=== PATIENT | male | born 1960 | race Caucasian/White ===

== ENCOUNTER 2016-10-12 19:15 | Emergency (ER) | payer MEDICAID ==
[~2016-10-12] VITALS: Ht 167.6 cm; Wt 69.5 kg
[2016-10-12 20:18] LABS: BASO # 0.1 K/mm3 (0.0-0.2); BASO % 0.8 % (0.0-1.0); EOS # 0.4 K/mm3 (0.0-0.50); LARGE UNSTAINED CELL # 0.2 K/mm3 (0.0-0.4); LARGE UNSTAINED CELL % 1.6 % (0.0-4.0); LYMPH # 2.6 K/mm3 (1.5-4.5); LYMPH % 25.3 % (24.0-44.0); MEAN CORPUSCULAR HEMOGLOBIN 34.7 pg (27.0-33.0); MEAN CORPUSCULAR HGB CONC 35.9 g/dl (32.0-36.5); MEAN CORPUSCULAR VOLUME 96.7 fl (80.0-96.0); MONO # 0.4 K/mm3 (0.0-0.8); MONO % 4.3 % (0.0-5.0); NEUTROPHILS # 6.3 K/mm3 (1.8-7.7); NEUTROPHILS % 63.9 % (36.0-66.0); PLATELET COUNT, AUTOMATED 290 k/mm3 (150-450); RED CELL DISTRIBUTION WIDTH 14.3 % (11.5-14.5); WHITE BLOOD COUNT 9.8 K/mm3 (4.0-10.0)
[2016-10-12 20:37] LABS: ANION GAP 6 MEQ/L (8-16); BLOOD UREA NITROGEN 15 MG/DL (7-18); CALCIUM LEVEL 9.1 MG/DL (8.5-10.1); CARBON DIOXIDE LEVEL 27 MEQ/L (21-32); CHLORIDE LEVEL 105 MEQ/L (98-107); CREATININE FOR GFR 0.82 MG/DL (0.70-1.30); GLOMERULAR FILTRATION RATE > 60.0 (>56); GLUCOSE, FASTING 98 MG/DL (70-105); POTASSIUM SERUM 4.4 MEQ/L (3.5-5.1); SODIUM LEVEL 138 MEQ/L (136-145)
--- NOTE | 2016-10-12 22:00 | REPUSA ---
Clinical statement: Pain. Findings: There is a right inguinal hernia demonstrated. The defect measures 4.6 x 5.3 cm in dimensio n. Omental fat is seen herniating through this site. No bowel is involved. There is no evidence of a scites. The hernia is not resolvable. Impression: Right inguinal hernia containing omental fat as described.
[2016-10-12] MEDS ORDERED: IBUP-1022 PO (22:24)
[2016-10-12 22:29] VITALS: BP 132/81
== END 2016-10-12 22:40 | disposition home or self-care (01) ==
LOC: M ED 19:15
DX: K40.90 Unilateral inguinal hernia, without obstruction or gangrene, not specified as recurrent (principal); F17.210 Nicotine dependence, cigarettes, uncomplicated

== ENCOUNTER 2017-01-10 05:50 | Day surgery (SDC) | payer MEDICAID, OTHER ==
[~2017-01-10] VITALS: Ht 167.6 cm; Wt 72.6 kg
[~2017-01-10 05:50] MED LIST: IBUP-1022 PO
[2017-01-10] MEDS ORDERED: LR 1,000 ML IV ONE (06:00)
[2017-01-10] MEDS ORDERED: LIDOCAINE 1% MDV 20ML VIAL As Ordered ONE (06:53)
[2017-01-10] MEDS ORDERED: LIDOCAINE 1% SDV INJ 30 ML VIAL As Ordered ONE (07:19)
[2017-01-10] MEDS ORDERED: BUPIVACAINE HCL 0.25% 30 ML VIAL As Ordered ONE (07:19)
[2017-01-10] MEDS ORDERED: ROCURONIUM BROMIDE 50 MG/5 ML VIAL/SYRINGE As Ordered ONE (07:21)
[2017-01-10] MEDS ORDERED: MIDAZOLAM INJ 2 MG/2 ML VIAL (J2250) As Ordered ONE (07:21)
[2017-01-10] MEDS ORDERED: LIDOCAINE 2% INJ 100 MG/5 ML SDV (FOR ANES.) As Ordered ONE (07:21)
[2017-01-10] MEDS ORDERED: fentaNYL 100 MCG/2 ML INJECTION (J3010) As Ordered ONE (07:21)
[2017-01-10] MEDS ORDERED: PROPOFOL 200 MG/20 ML VIAL As Ordered ONE (07:21)
[2017-01-10] MEDS ORDERED: ePHEDrine SULFATE 25 MG/5 ML(5MG/ML) SYRINGE As Ordered ONE (07:55)
[2017-01-10] MEDS ORDERED: ONDANSETRON 4MG/2ML VIAL (J2405) As Ordered ONE (07:55)
[2017-01-10] MEDS ORDERED: KETOROLAC 60 MG/2 ML VIAL (J1885) As Ordered ONE (07:55)
[2017-01-10] MEDS ORDERED: dexameTHASONE 4 MG/ML 1ML VIAL (J1100) As Ordered ONE (07:55)
[2017-01-10] MEDS ORDERED: NEOSTIGMINE 10 MG/10 ML VIAL (J2710) As Ordered ONE (07:55)
[2017-01-10] MEDS ORDERED: GLYCOPYRROLATE INJ 0.2 MG/ML 2 ML VIAL As Ordered ONE (07:55)
[2017-01-10] MEDS ORDERED: HYDROmorphone HCL 2 MG/ML 1ML VIAL (J1170) As Ordered ONE (08:12)
[2017-01-10] MEDS ORDERED: PHENYLephrine HCL 500 MCG/5 ML (100MCG/ML) SYRINGE (J2370) As Ordered ONE (09:18)
[2017-01-10] MEDS ORDERED: ONDANSETRON 4MG/2ML VIAL (J2405) IV PRN (10:00)
[2017-01-10] MEDS ORDERED: LR 1,000 ML IV SCH (10:00)
[2017-01-10] MEDS ORDERED: fentaNYL 100 MCG/2 ML INJECTION (J3010) IV PRN (10:00)
[2017-01-10] MEDS ORDERED: PERCOCET 5MG/325MG TAB PO PRN (10:00)
[2017-01-10] MEDS ORDERED: METOCLOPRAMIDE INJ 10MG/2ML VIAL (J2765) IV PRN (10:00)
[2017-01-10] MEDS ORDERED: MEPERIDINE INJ 25 MG/ML VIAL (J2175) IV PRN (10:00)
--- NOTE | 2017-01-10 10:29 | RO ---
DATE OF PROCEDURE: 01/10/2017 PREOPERATIVE DIAGNOSIS: Right inguinal hernia. POSTOPERATIVE DIAGNOSIS: Right inguinal hernia. PROCEDURE PERFORMED: Right inguinal herniorrhaphy with ultra Pro mesh. SURGEON: Dr. Stefan Del Angel APPEALS EXAMINER: Dr. Cassidy ANESTHESIA: General. INDICATIONS FOR PROCEDURE: The patient is a 56-year-old man with a right inguinal hernia for repair. The patient was placed under general endotracheal anesthesia. The patient's lower abdomen, groins and genitalia were prepped and draped in a sterile fashion. An approximately 8-10 cm oblique right lower quadrant skin incision was made over the course of the inguinal canal. The incision was deepened through the subcutaneous tissues using cautery. The external oblique aponeurosis was exposed. This was opened in the direction of its fibers into the external ring. There was some significant scarring at the external ring where it met the spermatic cord requiring some additional dissection. The spermatic cord was isolated at the pubic tubercle and elevated with a drain. The cord was opened and a distinct fairly thick walled indirect inguinal hernia sac was identified. This was dissected free from surrounding structures preserving the testicular vessels on the vas deferens. The sac was opened. There were a few adhesions of some omentum near the neck of the sac and these were lysed and the omentum was reduced into the abdomen. The hernia sac was twisted and suture ligated at its neck with a #0 Vicryl and excised. The inguinal floor was somewhat weakened and several sutures were used to approximate the conjoined tendon to the area of the shelving edge of the inguinal ligament to take a tuck in the inguinal floor. A 6 x 11 cm piece of ultra Pro mesh was then selected. This was lot number [id number]. This was trimmed to fit the inguinal floor and split laterally to fit about the spermatic cord. This was sutured at the pubic tubercle with a #3-0 Prolene which was carried along the lateral aspect of the mesh suturing this to the edge of the inguinal ligament. The medial portion of the mesh was tacked down to the underlying muscle and fascia with simple sutures of #3-0 Vicryl. The tails of the mesh were overlapped lateral to the spermatic cord and sutured together with #3-0 Vicryl. This appeared to give a nice reinforcement of the inguinal floor with narrowing of the internal ring. Approximately 20 mL of 0.25% Marcaine were infiltrated into the fascia and around the subcutaneous tissues of the wound. The external oblique was closed with a running suture of #0 Vicryl. The subcutaneous tissues were closed with chromic and the skin edges were brought into apposition with several buried #3-0 chromic sutures. The skin edges were approximated with a running subcuticular #4-0 Vicryl and Steri-Strips. A light dressing was applied. The patient tolerated the procedure well without apparent complication. He was awakened in the operating room, extubated and moved to the recovery room in stable condition. JOSE
[2017-01-10 11:25] VITALS: BP 124/74
== END 2017-01-10 11:34 | disposition home or self-care (01) ==
LOC: M SDC 05:50
PROVIDERS: ATTEND Surgery
DX: K40.90 Unilateral inguinal hernia, without obstruction or gangrene, not specified as recurrent (principal); F12.90 Cannabis use, unspecified, uncomplicated; Z72.0 Tobacco use
CPT/HCPCS: 49505; 88302; C1781; J1100; J1170; J1885; J2250; J2370; J2405; J2710; J3010

== ENCOUNTER → 2017-03-28 | Outpatient (CLI) | payer OTHER ==
[2017-03-28 11:02] LABS: ALBUMIN 4.2 GM/DL (3.2-5.2); ALBUMIN/GLOBULIN RATIO 1.14 (1.00-1.93); ALKALINE PHOSPHATASE 97 U/L (45-117); ALT/SGPT 28 U/L (12-78); ANION GAP 7 MEQ/L (8-16); AST/SGOT 13 U/L (7-37); BILIRUBIN,TOTAL 1.2 MG/DL (0.2-1.0); BLOOD UREA NITROGEN 19 MG/DL (7-18); CALCIUM LEVEL 8.9 MG/DL (8.5-10.1); CARBON DIOXIDE LEVEL 31 MEQ/L (21-32); CHLORIDE LEVEL 103 MEQ/L (98-107); CHOLESTEROL LEVEL 207 MG/DL (<200); CREATININE FOR GFR 0.92 MG/DL (0.70-1.30); FREE T4 1.04 NG/DL (0.76-1.46); GLOMERULAR FILTRATION RATE > 60.0 (>56); GLUCOSE, FASTING 95 MG/DL (70-105); POTASSIUM SERUM 4.6 MEQ/L (3.5-5.1); SODIUM LEVEL 141 MEQ/L (136-145); TOTAL PROTEIN 7.9 GM/DL (6.4-8.2); TRIGLYCERIDES LEVEL 273 MG/DL (<150)
--- NOTE | 2017-03-29 02:08 | REP ---
Clinical: Pain. Technique: AP, lateral, flexion/extension, bilateral oblique, and open-mouth views. Findings: Alignment and lordosis is maintained. There is no evidence for acute fracture / compression injury or subluxation. No significant degenerative changes are appreciated. Oblique views demonstrate patent neural foramen. Open mouth view demonstrates normal C1-C2 articulation and odontoid process. Impression: Age appropriate examination. If the patient remains symptomatic, consider MRI for further evaluation. Signed by David Denise MD 03/29/2017 01:59 A
== END ==
LOC: M LAB 09:17
PROVIDERS: ATTEND Nurse Practitioner Family
DX: Z00.00 Encounter for general adult medical examination without abnormal findings (principal); Z12.5 Encounter for screening for malignant neoplasm of prostate; R03.0 Elevated blood-pressure reading, without diagnosis of hypertension; F10.99 Alcohol use, unspecified with unspecified alcohol-induced disorder; M54.2 Cervicalgia

== ENCOUNTER → 2017-04-10 | Outpatient (CLI) | payer OTHER | LOC: M RAD 08:52 | DX: Z12.2 Encounter for screening for malignant neoplasm of respiratory organs (principal); Z87.891 Personal history of nicotine dependence | CPT/HCPCS: G0297 ==

== ENCOUNTER 2017-04-23 10:39 | Day surgery (SDC) | payer OTHER ==
[2017-04-23] MEDS: LR 1,000 ML IV (11:00)
[2017-04-23] MEDS ORDERED: PROPOFOL 200 MG/20 ML VIAL As Ordered ×3 (11:56→12:13)
[2017-04-23] MEDS ORDERED: LIDOCAINE 2% INJ 100 MG/5 ML SDV (FOR ANES.) As Ordered (11:56)
== END 2017-04-23 13:15 | disposition home or self-care (01) ==
LOC: M OPP 10:39
DX: Z12.11 Encounter for screening for malignant neoplasm of colon (principal); Z86.010 Personal history of colon polyps; Z80.0 Family history of malignant neoplasm of digestive organs; K57.30 Diverticulosis of large intestine without perforation or abscess without bleeding; K21.9 Gastro-esophageal reflux disease without esophagitis; K22.2 Esophageal obstruction; E78.5 Hyperlipidemia, unspecified; Z87.891 Personal history of nicotine dependence; Z79.899 Other long term (current) drug therapy
CPT/HCPCS: G0105

== ENCOUNTER → 2017-05-14 | Outpatient (CLI) | payer OTHER, MEDICAID | LOC: M RAD 09:18 | DX: M25.552 Pain in left hip (principal) | CPT/HCPCS: 73502 ==

== ENCOUNTER → 2017-06-11 | Outpatient (CLI) | payer OTHER ==
[2017-06-11 10:02] LABS: ALBUMIN 4.1 GM/DL (3.2-5.2); ALBUMIN/GLOBULIN RATIO 1.21 (1.00-1.93); ALKALINE PHOSPHATASE 104 U/L (45-117); ALT/SGPT 31 U/L (12-78); ANION GAP 4 MEQ/L (8-16); AST/SGOT 12 U/L (7-37); BILIRUBIN,TOTAL 1.5 MG/DL (0.2-1.0); BLOOD UREA NITROGEN 13 MG/DL (7-18); CALCIUM LEVEL 8.8 MG/DL (8.5-10.1); CARBON DIOXIDE LEVEL 29 MEQ/L (21-32); CHLORIDE LEVEL 107 MEQ/L (98-107); CREATININE FOR GFR 0.92 MG/DL (0.70-1.30); FREE T4 1.11 NG/DL (0.76-1.46); GLOMERULAR FILTRATION RATE > 60.0 (>56); GLUCOSE, FASTING 102 MG/DL (70-100); POTASSIUM SERUM 4.9 MEQ/L (3.5-5.1); SODIUM LEVEL 140 MEQ/L (136-145); TOTAL PROTEIN 7.5 GM/DL (6.4-8.2)
== END ==
LOC: M LAB 09:03
DX: E78.5 Hyperlipidemia, unspecified (principal)
CPT/HCPCS: 84443

== ENCOUNTER → 2017-09-18 | Outpatient (CLI) | payer OTHER ==
[2017-09-18 09:09] LABS: ALBUMIN/GLOBULIN RATIO 1.11 (1.00-1.93); ALKALINE PHOSPHATASE 104 U/L (45-117); ALT/SGPT 31 U/L (12-78); ANION GAP 9 MEQ/L (8-16); AST/SGOT 14 U/L (7-37); BILIRUBIN,TOTAL 1.4 MG/DL (0.2-1.0); BLOOD UREA NITROGEN 16 MG/DL (7-18); CALCIUM LEVEL 8.9 MG/DL (8.5-10.1); CARBON DIOXIDE LEVEL 28 MEQ/L (21-32); CHLORIDE LEVEL 103 MEQ/L (98-107); CREATININE FOR GFR 0.91 MG/DL (0.70-1.30); FREE T4 1.11 NG/DL (0.76-1.46); GLOMERULAR FILTRATION RATE > 60.0 (>56); GLUCOSE, FASTING 93 MG/DL (70-100); POTASSIUM SERUM 4.5 MEQ/L (3.5-5.1); SODIUM LEVEL 140 MEQ/L (136-145); TOTAL PROTEIN 7.6 GM/DL (6.4-8.2)
== END ==
LOC: M LAB 07:55
DX: E78.5 Hyperlipidemia, unspecified (principal); E03.9 Hypothyroidism, unspecified
CPT/HCPCS: 84443

== ENCOUNTER 2017-10-25 09:17 | Outpatient (RCR) | payer OTHER | END 2017-11-05 | LOC: M PT 09:17 | DX: Z51.89 Encounter for other specified aftercare (principal); M54.42 Lumbago with sciatica, left side | CPT/HCPCS: 97010 ==

== ENCOUNTER 2017-11-06 09:03 | Outpatient (RCR) | payer OTHER | END 2017-12-06 | LOC: M PT 11-11 09:15 | DX: Z51.89 Encounter for other specified aftercare (principal); M54.42 Lumbago with sciatica, left side | CPT/HCPCS: 97010 ==

== ENCOUNTER → 2019-02-02 | Outpatient (CLI) | payer OTHER ==
[~2019-02-02] MED LIST changes: +ATOR40TA75; +HYDR-3713; +IBUP-1022
[2019-02-02 12:09] LABS: ALT/SGPT 23 U/L (12-78); BLOOD UREA NITROGEN 18 MG/DL (7-18); CALCIUM LEVEL 8.8 MG/DL (8.5-10.1); CARBON DIOXIDE LEVEL 29 MEQ/L (21-32); CHLORIDE LEVEL 105 MEQ/L (98-107); CHOLESTEROL LEVEL 164 MG/DL (<200); CHOLESTEROL RISK RATIO 3.489 (<5); CREATININE FOR GFR 0.94 MG/DL (0.70-1.30); GLOMERULAR FILTRATION RATE > 60.0 (>56); GLUCOSE, FASTING 94 MG/DL (70-100); HDL CHOLESTEROL 47 MG/DL (>40); LDL CHOLESTEROL 92 MG/DL (<100); NON-HDL-C 117 MG/DL; POTASSIUM SERUM 4.7 MEQ/L (3.5-5.1); SODIUM LEVEL 140 MEQ/L (136-145); TOTAL PROTEIN 7.1 GM/DL (6.4-8.2); TRIGLYCERIDES LEVEL 124 MG/DL (<150)
[2019-02-02 12:10] LABS: ALBUMIN 3.9 GM/DL (3.2-5.2); FREE T4 0.91 NG/DL (0.76-1.46)
== END ==
LOC: M LAB 10:52
PROVIDERS: ATTEND Nurse Practitioner Family
DX: E78.5 Hyperlipidemia, unspecified (principal); Z12.5 Encounter for screening for malignant neoplasm of prostate

== ENCOUNTER → 2019-02-03 | Outpatient (CLI) | payer OTHER ==
--- NOTE | 2019-02-03 12:53 | REP ---
Clinical: Lung screening. History smoking. Comparison: 04/10/2017 Technique: Axial low-dose noncontrast images from the thoracic inlet to the upper abdomen using lung screening technique. Findings: The lung david are well-aerated. No consolidation, significant nodule or mass lesion is appreciated. No pleural effusion/reaction or pneumothorax. Tracheobronchial tree is patent. Mediastinum demonstrates mild atherosclerotic changes of the coronary arteries without cardiomegaly. Impression: Lung-RADS category I. No nodule or suspicious abnormality. Electronically Signed by David Denise MD 02/03/2019 10:08 A
== END ==
LOC: M RAD 09:49
PROVIDERS: ATTEND Nurse Practitioner Family
DX: Z12.2 Encounter for screening for malignant neoplasm of respiratory organs (principal); F17.210 Nicotine dependence, cigarettes, uncomplicated

== ENCOUNTER 2019-03-03 09:28 | Outpatient (RCR) | payer OTHER | END 2019-03-07 | LOC: M PT 09:28 | PROVIDERS: ATTEND Nurse Practitioner Family | DX: M54.2 Cervicalgia (principal); G56.01 Carpal tunnel syndrome, right upper limb ==

== ENCOUNTER 2019-04-02 12:00 | Outpatient (RCR) | payer OTHER | END 2019-04-07 | LOC: M PT 12:00 | PROVIDERS: ATTEND Nurse Practitioner Family | DX: M54.2 Cervicalgia (principal); G56.01 Carpal tunnel syndrome, right upper limb ==

== ENCOUNTER → 2020-06-15 | Outpatient (CLI) | payer OTHER ==
--- NOTE | 2020-06-15 12:56 | REP ---
INDICATION: SMOKER COMPARISON: None. TECHNIQUE: Axial noncontrast images from the thoracic inlet to the upper abdomen using low-dose lung screening technique (LDCT). FINDINGS: Lung david are well aerated and relatively symmetric. No consolidation, significant nodule or mass lesion is appreciated. No pleural effusion. No pneumothorax. Tracheobronchial tree is patent. Mediastinum demonstrates stable mild atherosclerotic changes to the thoracic aorta and coronary arteries without cardiomegaly or aortic aneurysm. IMPRESSION: Lung-RADS category 1. Management recommendations include annual low-dose CT surveillance. <Electronically signed by David Densie > 06/15/20 [id number]
== END ==
LOC: M RAD 12:33
PROVIDERS: ATTEND Nurse Practitioner Family
DX: F17.210 Nicotine dependence, cigarettes, uncomplicated (principal); Z12.2 Encounter for screening for malignant neoplasm of respiratory organs

== ENCOUNTER → 2020-06-16 | Outpatient (CLI) | payer OTHER ==
[2020-06-16 10:37] LABS: BASO # 0.1 10^3/uL (0.0-0.2); BASO % 0.9 % (0.0-1.0); EOS # 0.3 10^3/uL (0.0-0.5); EOS % 3.9 % (0.0-3.0); HEMATOCRIT 41.6 % (42.0-52.0); HEMOGLOBIN 15.1 g/dl (13.5-17.5); LYMPH # 2.2 10^3/uL (1.5-5.0); LYMPH % 27.8 % (24.0-44.0); MEAN CORPUSCULAR HEMOGLOBIN 33.8 pg (27.0-33.0); MEAN CORPUSCULAR HGB CONC 36.3 g/dl (32.0-36.5); MEAN CORPUSCULAR VOLUME 93.1 fl (80.0-96.0); MONO # 0.7 10^3/uL (0.0-0.8); MONO % 8.8 % (2.0-8.0); NEUTROPHILS # 4.5 10^3/uL (1.5-8.5); NEUTROPHILS % 58.2 % (36.0-66.0); PLATELET COUNT, AUTOMATED 284 10^3/uL (150-450); RED BLOOD COUNT 4.47 10^6/uL (4.30-6.10); WHITE BLOOD COUNT 7.8 10^3/uL (4.0-10.0)
[2020-06-16 11:11] LABS: ALBUMIN 4.1 GM/DL (3.2-5.2); ALT/SGPT 27 U/L (12-78); BILIRUBIN,TOTAL 1.2 MG/DL (0.2-1.0); BLOOD UREA NITROGEN 18 MG/DL (7-18); CALCIUM LEVEL 9.1 MG/DL (8.8-10.2); CARBON DIOXIDE LEVEL 26 MEQ/L (21-32); CHLORIDE LEVEL 105 MEQ/L (98-107); CHOLESTEROL LEVEL 209 MG/DL (<200); CHOLESTEROL RISK RATIO 4.644 (<5); CREATININE FOR GFR 0.96 MG/DL (0.70-1.30); FREE T4 0.92 NG/DL (0.76-1.46); GLOMERULAR FILTRATION RATE > 60.0 (>49); GLUCOSE, FASTING 90 MG/DL (70-100); HDL CHOLESTEROL 45 MG/DL (>40); LDL CHOLESTEROL 118 MG/DL (<100); NON-HDL-C 164 MG/DL; POTASSIUM SERUM 4.7 MEQ/L (3.5-5.1); SODIUM LEVEL 138 MEQ/L (136-145); TOTAL PROTEIN 7.8 GM/DL (6.4-8.2); TRIGLYCERIDES LEVEL 232 MG/DL (<150)
[2020-06-16 12:29] LABS: TOTAL 25(OH) VITAMIN D 27.8 NG/ML (30.0-100.0)
[2020-06-16 12:30] LABS: FOLATE 18.5 NG/ML; VITAMIN B12 LEVEL 551 PG/ML
== END ==
LOC: M LAB 09:36
PROVIDERS: ATTEND Nurse Practitioner Family
DX: R20.2 Paresthesia of skin (principal); E78.5 Hyperlipidemia, unspecified; E03.9 Hypothyroidism, unspecified; Z12.5 Encounter for screening for malignant neoplasm of prostate

== ENCOUNTER → 2020-07-12 | Outpatient (CLI) | payer OTHER ==
[2020-07-12 10:19] LABS: RHEUMATOID FACTOR QUANT < 10.0 IU/ML (<15.0)
[2020-07-12 11:16] LABS: FOLATE 14.6 NG/ML; VITAMIN B12 LEVEL 557 PG/ML
[2020-07-13 14:08] LABS: ANTINUCLEAR ANTIBODIES DIRECT Negative (Negative)
[2020-07-14 12:30] LABS: DRVV SCREEN 49.9 SEC
[2020-07-14 12:40] LABS: PTT LUPUS TYPE ANTICOAG SCREEN 1.2 (0-1.2)
[2020-07-14 12:48] LABS: DRVV CONFIRM 37.5 SEC
[2020-07-14 12:56] LABS: NORMALIZED RATIO 1.2 (0.00-1.20)
[2020-07-16 03:06] LABS: HEXAGONAL PHASE PHOSPHOLIPID 0 sec (0-11)
== END ==
LOC: M LAB 09:10
PROVIDERS: ATTEND Nurse Practitioner Family
DX: M54.12 Radiculopathy, cervical region (principal)

== ENCOUNTER → 2022-03-06 | Outpatient (CLI) | payer OTHER ==
[~2022-03-06] MED LIST changes: +ALEV220T22 PO; +AMOX875T2 PO; +BENZ200C70 PO; +CEFD300C41 PO; +DOXY-444 PO; +METH-1165 PO
== END ==
LOC: M LAB 08:10
PROVIDERS: ATTEND Physician Assistant
DX: Z12.5 Encounter for screening for malignant neoplasm of prostate (principal); Z85.46 Personal history of malignant neoplasm of prostate

== ENCOUNTER → 2022-04-23 | Outpatient (CLI) | payer OTHER ==
[2022-04-23 09:48] LABS: HEMATOCRIT 43.7 % (42.0-52.0); HEMOGLOBIN 15.2 g/dl (13.5-17.5); MEAN CORPUSCULAR HEMOGLOBIN 31.3 pg (27.0-33.0); MEAN CORPUSCULAR HGB CONC 34.8 g/dl (32.0-36.5); MEAN CORPUSCULAR VOLUME 89.9 fl (80.0-96.0); PLATELET COUNT, AUTOMATED 255 10^3/uL (150-450); RED BLOOD COUNT 4.86 10^6/uL (4.30-6.10); WHITE BLOOD COUNT 7.5 10^3/uL (4.0-10.0)
[2022-04-23 09:58] LABS: INR 0.86; PROTHROMBIN TIME 11.9 SECONDS (12.5-14.5)
[2022-04-23 10:18] LABS: ALBUMIN 3.9 G/DL (3.2-5.2); ALKALINE PHOSPHATASE 87 U/L (46-116); ALT/SGPT 45 U/L (7.0-40); AST/SGOT 21 U/L (<34); BILIRUBIN,TOTAL 0.6 MG/DL (0.3-1.2); BLOOD UREA NITROGEN 20 MG/DL (9-23); CARBON DIOXIDE LEVEL 28 MMOL/L (20-31); CHLORIDE LEVEL 103 MMOL/L (98-107); CREATININE FOR GFR 0.77 MG/DL (0.70-1.30); GLOMERULAR FILTRATION RATE > 60.0 (>49); GLUCOSE, FASTING 82 MG/DL (74-106); POTASSIUM SERUM 4.6 MMOL/L (3.5-5.1); SODIUM LEVEL 138 MMOL/L (136-145); TOTAL PROTEIN 7.4 G/DL (5.7-8.2)
== END ==
LOC: M RAD 07:58
PROVIDERS: ATTEND Urology
DX: R31.0 Gross hematuria (principal)

== ENCOUNTER → 2022-04-25 | Outpatient (CLI) | payer OTHER | LOC: M LABSMTC 11:22 | PROVIDERS: ATTEND Anesthesiology | DX: Z01.812 Encounter for preprocedural laboratory examination (principal); Z20.822 Contact with and (suspected) exposure to COVID-19 ==

== ENCOUNTER 2022-04-30 06:53 | Day surgery (SDC) | payer OTHER ==
[~2022-04-30] VITALS: Ht 167.6 cm; Wt 77.6 kg
[~2022-04-30 06:53] MED LIST changes: +ceFAZolin SOD 2 GM in IV 1 EA IV ONE
[2022-04-30] MEDS ORDERED: propofoL 200 MG/20 ML VIAL As Ordered ONE (07:48)
[2022-04-30] MEDS ORDERED: ROCURONIUM BROMIDE 50MG/5ML VIAL As Ordered ONE (07:48)
[2022-04-30] MEDS ORDERED: ONDANSETRON 4MG 2ML VIAL As Ordered ONE (07:48)
[2022-04-30] MEDS ORDERED: SUGAMMADEX SODIUM 500 MG/5 ML VIAL (BRIDION) As Ordered ONE (07:48)
[2022-04-30] MEDS ORDERED: LIDOCAINE 2% 100MG/5ML SDV (FOR ANES.) As Ordered ONE (07:48)
[2022-04-30] MEDS ORDERED: LR 1,000 ML IV SCH ×2 (07:55→09:40)
[2022-04-30] MEDS ORDERED: MIDAZOLAM INJ 2MG/2ML VIAL As Ordered ONE (08:22)
[2022-04-30] MEDS ORDERED: fentaNYL 100 MCG/2 ML INJECTION As Ordered ONE (08:22)
[2022-04-30] MEDS ORDERED: mitoMYcin 40MG VIAL *UROLOGY INTRAVESIC ONE (08:30)
[2022-04-30] MEDS ORDERED: ACETAMINOPHEN 1000MG 100ML IV BAG As Ordered ONE (09:03)
[2022-04-30] MEDS ORDERED: METOCLOPRAMIDE INJ 10MG/2ML VIAL IV PRN (09:40)
[2022-04-30] MEDS ORDERED: HYDROMORPHONE HCL 0.5 MG/ 0.5 ML SYRINGE IV PRN (09:40)
[2022-04-30] MEDS ORDERED: oxyCODONE 5MG TAB PO PRN (09:40)
[2022-04-30] MEDS ORDERED: fentaNYL 100 MCG/2 ML INJECTION IV PRN (09:40)
[2022-04-30] MEDS ORDERED: ONDANSETRON 4MG 2ML VIAL IV PRN (09:40)
[2022-04-30] MEDS ORDERED: PYRI1TAB5 PO (09:43)
[2022-04-30] MEDS ORDERED: OXYB5TAB10 PO (09:43)
[2022-04-30] MEDS ORDERED: HYDR-3713 PO (09:43)
[2022-04-30] MEDS ORDERED: BACT800T5 PO (09:43)
[2022-04-30 12:30] VITALS: BP 156/96
== END 2022-04-30 12:35 | disposition home or self-care (01) ==
LOC: M SDC 06:53
PROVIDERS: ATTEND Urology
DX: C67.9 Malignant neoplasm of bladder, unspecified (principal); E78.5 Hyperlipidemia, unspecified; F17.210 Nicotine dependence, cigarettes, uncomplicated; Z79.899 Other long term (current) drug therapy
CPT/HCPCS: 51720; 52240; 52332; 88305; 88307; C1769; C2617; J1100; J2405; J9280

== ENCOUNTER → 2022-05-18 | Outpatient (CLI) | payer OTHER ==
[~2022-05-18] MED LIST changes: +BACT800T5 PO; +HYDR-3713 PO; +ISOVUE-370 76% 100ML VIAL As Ordered ONE; +OXYB5TAB10 PO; +PYRI1TAB5 PO; -ceFAZolin SOD 2 GM in IV 1 EA IV ONE
== END ==
LOC: M RAD 07:54
PROVIDERS: ATTEND Family Medicine
DX: R91.8 Other nonspecific abnormal finding of lung field (principal); K76.0 Fatty (change of) liver, not elsewhere classified

== ENCOUNTER → 2022-06-08 | Outpatient (CLI) | payer OTHER ==
[~2022-06-08] MED LIST changes: -ISOVUE-370 76% 100ML VIAL As Ordered ONE
[2022-06-08 08:44] LABS: BASO # 0.1 10^3/uL (0.0-0.2); BASO % 0.8 % (0.0-1.0); EOS # 0.4 10^3/uL (0.0-0.5); HEMATOCRIT 42.6 % (42.0-52.0); HEMOGLOBIN 14.9 g/dl (13.5-17.5); LYMPH # 2.9 10^3/uL (1.5-5.0); LYMPH % 31.8 % (24.0-44.0); MEAN CORPUSCULAR HEMOGLOBIN 31.6 pg (27.0-33.0); MEAN CORPUSCULAR VOLUME 90.4 fl (80.0-96.0); MONO # 0.9 10^3/uL (0.0-0.8); MONO % 9.6 % (2.0-8.0); NEUTROPHILS # 4.8 10^3/uL (1.5-8.5); NEUTROPHILS % 53.5 % (36.0-66.0); PLATELET COUNT, AUTOMATED 264 10^3/uL (150-450); RED BLOOD COUNT 4.71 10^6/uL (4.30-6.10)
[2022-06-08 09:01] LABS: ALBUMIN 4.1 G/DL (3.2-5.2); ALKALINE PHOSPHATASE 86 U/L (46-116); ALT/SGPT 42 U/L (7.0-40); AST/SGOT 18 U/L (<34); BILIRUBIN,TOTAL 0.7 MG/DL (0.3-1.2); BLOOD UREA NITROGEN 18 MG/DL (9-23); CALCIUM LEVEL 9.3 MG/DL (8.3-10.6); CARBON DIOXIDE LEVEL 30 MMOL/L (20-31); CHLORIDE LEVEL 105 MMOL/L (98-107); CREATININE FOR GFR 0.83 MG/DL (0.70-1.30); GLOMERULAR FILTRATION RATE > 60.0 (>49); GLUCOSE, FASTING 85 MG/DL (74-106); POTASSIUM SERUM 4.7 MMOL/L (3.5-5.1); SODIUM LEVEL 139 MMOL/L (136-145); TOTAL PROTEIN 7.6 G/DL (5.7-8.2)
[2022-06-08 12:39] LABS: APPEARANCE, URINE CLEAR (CLEAR); BACTERIA, URINE AUTO NEGATIVE (NEGATIVE); BILIRUBIN, URINE AUTO NEGATIVE (NEGATIVE); BLOOD, URINE BLOOD NEGATIVE (NEGATIVE); COLOR, URINE YELLOW (YELLOW); GLUCOSE, URINE (UA) AUTO NEGATIVE (NEGATIVE); KETONE, URINE AUTO NEGATIVE (NEGATIVE); LEUKOCYTE ESTERASE, URINE AUTO TRACE (NEGATIVE); MUCUS, URINE SMALL (NEGATIVE); NITRITE, URINE AUTO NEGATIVE (NEGATIVE); PROTEIN, URINE AUTO NEGATIVE (NEGATIVE); RBC, URINE AUTO 4 /HPF (0-3); SPECIFIC GRAVITY URINE AUTO 1.026 (1.002-1.035); SQUAMOUS EPITHELIAL CELL UR AU 0 /HPF (0-6); UROBILINOGEN, URINE AUTO 0.2 mg/dL (0.0-2.0); WBC, URINE AUTO 30 /HPF (0-3)
== END ==
LOC: M LAB 07:56
PROVIDERS: ATTEND Physician Assistant
DX: C67.9 Malignant neoplasm of bladder, unspecified (principal)

== ENCOUNTER → 2022-06-18 | Outpatient (REF) | payer OTHER ==
[2022-06-18 13:54] LABS: APPEARANCE, URINE HAZY (CLEAR); BACTERIA, URINE AUTO NEGATIVE (NEGATIVE); BILIRUBIN, URINE AUTO NEGATIVE (NEGATIVE); BLOOD, URINE BLOOD NEGATIVE (NEGATIVE); COLOR, URINE YELLOW (YELLOW); GLUCOSE, URINE (UA) AUTO NEGATIVE (NEGATIVE); KETONE, URINE AUTO NEGATIVE (NEGATIVE); LEUKOCYTE ESTERASE, URINE AUTO 2+ (NEGATIVE); MUCUS, URINE SMALL (NEGATIVE); NITRITE, URINE AUTO NEGATIVE (NEGATIVE); PROTEIN, URINE AUTO NEGATIVE (NEGATIVE); RBC, URINE AUTO 2 /HPF (0-3); SPECIFIC GRAVITY URINE AUTO 1.021 (1.002-1.035); SQUAMOUS EPITHELIAL CELL UR AU 0 /HPF (0-6); UROBILINOGEN, URINE AUTO 0.2 mg/dL (0.0-2.0); WBC, URINE AUTO 19 /HPF (0-3)
== END ==
LOC: M SMT 12:45
PROVIDERS: ATTEND Physician Assistant
DX: C67.9 Malignant neoplasm of bladder, unspecified (principal)

== ENCOUNTER → 2022-06-25 | Outpatient (REF) | payer OTHER ==
[2022-06-25 15:09] LABS: APPEARANCE, URINE HAZY (CLEAR); BACTERIA, URINE AUTO 1+ (NEGATIVE); BILIRUBIN, URINE AUTO NEGATIVE (NEGATIVE); BLOOD, URINE BLOOD NEGATIVE (NEGATIVE); COLOR, URINE AMBER (YELLOW); GLUCOSE, URINE (UA) AUTO NEGATIVE (NEGATIVE); KETONE, URINE AUTO NEGATIVE (NEGATIVE); LEUKOCYTE ESTERASE, URINE AUTO 1+ (NEGATIVE); MUCUS, URINE SMALL (NEGATIVE); NITRITE, URINE AUTO NEGATIVE (NEGATIVE); PROTEIN, URINE AUTO 1+ mg/dL (NEGATIVE); RBC, URINE AUTO 7 /HPF (0-3); SPECIFIC GRAVITY URINE AUTO 1.026 (1.002-1.035); SQUAMOUS EPITHELIAL CELL UR AU 0 /HPF (0-6); UROBILINOGEN, URINE AUTO 0.2 mg/dL (0.0-2.0); WBC, URINE AUTO 37 /HPF (0-3)
== END ==
LOC: M SMT 13:09
PROVIDERS: ATTEND Physician Assistant
DX: C67.9 Malignant neoplasm of bladder, unspecified (principal)

== ENCOUNTER → 2022-07-02 | Outpatient (REF) | payer OTHER ==
[2022-07-02 17:33] LABS: APPEARANCE, URINE TURBID (CLEAR); BACTERIA, URINE AUTO 1+ (NEGATIVE); BILIRUBIN, URINE AUTO NEGATIVE (NEGATIVE); BLOOD, URINE BLOOD NEGATIVE (NEGATIVE); COLOR, URINE AMBER (YELLOW); GLUCOSE, URINE (UA) AUTO NEGATIVE (NEGATIVE); KETONE, URINE AUTO NEGATIVE (NEGATIVE); LEUKOCYTE ESTERASE, URINE AUTO 1+ (NEGATIVE); MUCUS, URINE SMALL (NEGATIVE); NITRITE, URINE AUTO NEGATIVE (NEGATIVE); PROTEIN, URINE AUTO NEGATIVE (NEGATIVE); RBC, URINE AUTO 3 /HPF (0-3); SPECIFIC GRAVITY URINE AUTO 1.021 (1.002-1.035); SQUAMOUS EPITHELIAL CELL UR AU 0 /HPF (0-6); UROBILINOGEN, URINE AUTO 0.2 mg/dL (0.0-2.0); WBC, URINE AUTO 34 /HPF (0-3)
== END ==
LOC: M SMT 16:38
PROVIDERS: ATTEND Physician Assistant
DX: C67.9 Malignant neoplasm of bladder, unspecified (principal)

== ENCOUNTER → 2022-07-02 | Outpatient (CLI) | payer OTHER ==
[2022-07-02 12:32] LABS: BASO % 0.5 % (0.0-1.0); EOS # 0.2 10^3/uL (0.0-0.5); EOS % 1.8 % (0.0-3.0); HEMATOCRIT 42.2 % (42.0-52.0); HEMOGLOBIN 14.8 g/dl (13.5-17.5); LYMPH # 2.3 10^3/uL (1.5-5.0); LYMPH % 27.9 % (24.0-44.0); MEAN CORPUSCULAR HEMOGLOBIN 31.8 pg (27.0-33.0); MEAN CORPUSCULAR HGB CONC 35.1 g/dl (32.0-36.5); MEAN CORPUSCULAR VOLUME 90.8 fl (80.0-96.0); MONO # 0.6 10^3/uL (0.0-0.8); MONO % 7.2 % (2.0-8.0); NEUTROPHILS # 5.1 10^3/uL (1.5-8.5); NEUTROPHILS % 61.6 % (36.0-66.0); PLATELET COUNT, AUTOMATED 324 10^3/uL (150-450); RED BLOOD COUNT 4.65 10^6/uL (4.30-6.10); WHITE BLOOD COUNT 8.3 10^3/uL (4.0-10.0)
[2022-07-02 12:59] LABS: HEMOGLOBIN A1c 4.5 % (4.0-6.0)
[2022-07-02 13:05] LABS: ALBUMIN 3.8 G/DL (3.2-5.2); ALKALINE PHOSPHATASE 96 U/L (46-116); ALT/SGPT 59 U/L (7.0-40); AST/SGOT 22 U/L (<34); BILIRUBIN,TOTAL 0.5 MG/DL (0.3-1.2); BLOOD UREA NITROGEN 18 MG/DL (9-23); CALCIUM LEVEL 9.1 MG/DL (8.3-10.6); CARBON DIOXIDE LEVEL 30 MMOL/L (20-31); CHLORIDE LEVEL 101 MMOL/L (98-107); CHOLESTEROL LEVEL 206 MG/DL (<200); CHOLESTEROL RISK RATIO 6.41 (<5); CREATININE FOR GFR 0.81 MG/DL (0.70-1.30); GLOMERULAR FILTRATION RATE > 60.0 (>49); GLUCOSE, FASTING 174 MG/DL (74-106); HDL CHOLESTEROL 32.1 MG/DL (>40); NON-HDL-C 173.9 MG/DL; POTASSIUM SERUM 4.9 MMOL/L (3.5-5.1); SODIUM LEVEL 136 MMOL/L (136-145); TOTAL PROTEIN 7.2 G/DL (5.7-8.2); TRIGLYCERIDES LEVEL 715 MG/DL (<150)
== END ==
LOC: M LAB 11:04
PROVIDERS: ATTEND Physician Assistant
DX: E78.2 Mixed hyperlipidemia (principal); R16.0 Hepatomegaly, not elsewhere classified
CPT/HCPCS: 36415; 80053; 80061; 83036; 85025; G0472

== ENCOUNTER → 2022-07-09 | Outpatient (REF) | payer OTHER ==
[2022-07-09 14:41] LABS: APPEARANCE, URINE CLEAR (CLEAR); BACTERIA, URINE AUTO NEGATIVE (NEGATIVE); BILIRUBIN, URINE AUTO NEGATIVE (NEGATIVE); BLOOD, URINE BLOOD NEGATIVE (NEGATIVE); COLOR, URINE YELLOW (YELLOW); GLUCOSE, URINE (UA) AUTO NEGATIVE (NEGATIVE); KETONE, URINE AUTO NEGATIVE (NEGATIVE); LEUKOCYTE ESTERASE, URINE AUTO TRACE (NEGATIVE); MUCUS, URINE SMALL (NEGATIVE); NITRITE, URINE AUTO NEGATIVE (NEGATIVE); PROTEIN, URINE AUTO NEGATIVE (NEGATIVE); RBC, URINE AUTO 3 /HPF (0-3); SPECIFIC GRAVITY URINE AUTO 1.021 (1.002-1.035); SQUAMOUS EPITHELIAL CELL UR AU 0 /HPF (0-6); UROBILINOGEN, URINE AUTO 0.2 mg/dL (0.0-2.0); WBC, URINE AUTO 12 /HPF (0-3)
== END ==
LOC: M SMT 12:58
PROVIDERS: ATTEND Physician Assistant
DX: C67.9 Malignant neoplasm of bladder, unspecified (principal)

== ENCOUNTER → 2022-07-16 | Outpatient (REF) | payer OTHER ==
[2022-07-16 13:11] LABS: APPEARANCE, URINE HAZY (CLEAR); BACTERIA, URINE AUTO 1+ (NEGATIVE); BILIRUBIN, URINE AUTO NEGATIVE (NEGATIVE); BLOOD, URINE BLOOD NEGATIVE (NEGATIVE); COLOR, URINE YELLOW (YELLOW); GLUCOSE, URINE (UA) AUTO NEGATIVE (NEGATIVE); KETONE, URINE AUTO NEGATIVE (NEGATIVE); LEUKOCYTE ESTERASE, URINE AUTO TRACE (NEGATIVE); MUCUS, URINE SMALL (NEGATIVE); NITRITE, URINE AUTO NEGATIVE (NEGATIVE); PROTEIN, URINE AUTO NEGATIVE (NEGATIVE); RBC, URINE AUTO 4 /HPF (0-3); SPECIFIC GRAVITY URINE AUTO 1.023 (1.002-1.035); SQUAMOUS EPITHELIAL CELL UR AU 0 /HPF (0-6); UROBILINOGEN, URINE AUTO 0.2 mg/dL (0.0-2.0); WBC, URINE AUTO 16 /HPF (0-3)
== END ==
LOC: M SMT 12:44
PROVIDERS: ATTEND Physician Assistant
DX: C67.9 Malignant neoplasm of bladder, unspecified (principal)

== ENCOUNTER → 2022-08-17 | Outpatient (REF) | payer OTHER | LOC: M SMT 17:14 | PROVIDERS: ATTEND Urology | DX: Z85.51 Personal history of malignant neoplasm of bladder (principal) ==

== ENCOUNTER 2022-09-21 12:50 | Day surgery (SDC) | payer OTHER ==
[~2022-09-21] VITALS: Ht 167.6 cm; Wt 78.5 kg
[~2022-09-21 12:50] MED LIST changes: +ASCO100013 PO; +NS 1,000 ML IV ONE; +VITA100093 PO; +[UNRECOGNIZED DRUG - CODE] PO
[2022-09-21] MEDS ORDERED: propofoL 200 MG/20 ML VIAL As Ordered ONE (14:11)
[2022-09-21] MEDS ORDERED: LIDOCAINE 2% 100MG/5ML SDV (FOR ANES.) As Ordered ONE (14:12)
[2022-09-21 15:00] VITALS: BP 121/76; O2SAT 97
== END 2022-09-21 15:09 | disposition home or self-care (01) ==
LOC: M OPP 12:50
PROVIDERS: ATTEND Surgery
DX: Z12.11 Encounter for screening for malignant neoplasm of colon (principal); Z80.0 Family history of malignant neoplasm of digestive organs; D12.6 Benign neoplasm of colon, unspecified; K57.30 Diverticulosis of large intestine without perforation or abscess without bleeding; K21.00 Gastro-esophageal reflux disease with esophagitis, without bleeding; K29.70 Gastritis, unspecified, without bleeding; K31.89 Other diseases of stomach and duodenum; Z87.891 Personal history of nicotine dependence; Z79.899 Other long term (current) drug therapy

== ENCOUNTER → 2022-10-02 | Outpatient (CLI) | payer OTHER ==
[~2022-10-02] MED LIST changes: -NS 1,000 ML IV ONE; +PANT40TA29 PO
[2022-10-02 10:36] LABS: HEMATOCRIT 41.1 % (42.0-52.0); HEMOGLOBIN 14.6 g/dl (13.5-17.5); MEAN CORPUSCULAR HEMOGLOBIN 31.9 pg (27.0-33.0); MEAN CORPUSCULAR HGB CONC 35.5 g/dl (32.0-36.5); MEAN CORPUSCULAR VOLUME 89.9 fl (80.0-96.0); PLATELET COUNT, AUTOMATED 239 10^3/uL (150-450); RED BLOOD COUNT 4.57 10^6/uL (4.30-6.10); WHITE BLOOD COUNT 7.3 10^3/uL (4.0-10.0)
[2022-10-02 11:10] LABS: ALBUMIN 4.1 G/DL (3.2-5.2); ALKALINE PHOSPHATASE 118 U/L (46-116); ALT/SGPT 60 U/L (7.0-40); AST/SGOT 23 U/L (<34); BILIRUBIN,TOTAL 1.2 MG/DL (0.3-1.2); BLOOD UREA NITROGEN 19 MG/DL (9-23); CALCIUM LEVEL 9.4 MG/DL (8.3-10.6); CARBON DIOXIDE LEVEL 28 MMOL/L (20-31); CHLORIDE LEVEL 104 MMOL/L (98-107); CREATININE FOR GFR 0.97 MG/DL (0.70-1.30); GLOMERULAR FILTRATION RATE > 60.0 (>49); GLUCOSE, FASTING 147 MG/DL (74-106); POTASSIUM SERUM 4.7 MMOL/L (3.5-5.1); SODIUM LEVEL 138 MMOL/L (136-145); TOTAL PROTEIN 7.4 G/DL (5.7-8.2)
[2022-10-02 18:51] LABS: APPEARANCE, URINE HAZY (CLEAR); BACTERIA, URINE AUTO NEGATIVE (NEGATIVE); BILIRUBIN, URINE AUTO NEGATIVE (NEGATIVE); BLOOD, URINE BLOOD NEGATIVE (NEGATIVE); COLOR, URINE AMBER (YELLOW); GLUCOSE, URINE (UA) AUTO NEGATIVE (NEGATIVE); KETONE, URINE AUTO NEGATIVE (NEGATIVE); LEUKOCYTE ESTERASE, URINE AUTO NEGATIVE (NEGATIVE); MUCUS, URINE SMALL (NEGATIVE); NITRITE, URINE AUTO NEGATIVE (NEGATIVE); PROTEIN, URINE AUTO NEGATIVE (NEGATIVE); RBC, URINE AUTO 0 /HPF (0-3); SPECIFIC GRAVITY URINE AUTO 1.018 (1.002-1.035); SQUAMOUS EPITHELIAL CELL UR AU 0 /HPF (0-6); UROBILINOGEN, URINE AUTO 0.2 mg/dL (0.0-2.0); WBC, URINE AUTO 0 /HPF (0-3)
== END ==
LOC: M RAD 09:55
PROVIDERS: ATTEND Urology
DX: Z85.51 Personal history of malignant neoplasm of bladder (principal); I70.0 Atherosclerosis of aorta

== ENCOUNTER 2022-10-12 07:18 | Day surgery (SDC) | payer OTHER ==
[~2022-10-12] VITALS: Ht 167.6 cm; Wt 78.1 kg
[~2022-10-12 07:18] MED LIST changes: +ceFAZolin SOD 2 GM in IV 1 EA IV ONE
[2022-10-12] MEDS ORDERED: ONDANSETRON 4MG 2ML VIAL As Ordered ONE (08:00)
[2022-10-12] MEDS ORDERED: MIDAZOLAM INJ 2MG/2ML VIAL As Ordered ONE (08:00)
[2022-10-12] MEDS ORDERED: LR 1,000 ML IV SCH ×2 (08:00→09:40)
[2022-10-12] MEDS ORDERED: fentaNYL 100 MCG/2 ML INJECTION As Ordered ONE ×2 (08:00→08:50)
[2022-10-12] MEDS ORDERED: propofoL 200 MG/20 ML VIAL As Ordered ONE (08:01)
[2022-10-12] MEDS ORDERED: LIDOCAINE 2% 100MG/5ML SDV (FOR ANES.) As Ordered ONE (08:01)
[2022-10-12] MEDS ORDERED: ACETAMINOPHEN 1000MG 100ML IV BAG As Ordered ONE (08:12)
[2022-10-12] MEDS ORDERED: ROCURONIUM BROMIDE 50MG/5ML VIAL As Ordered ONE (08:49)
[2022-10-12] MEDS ORDERED: SUGAMMADEX SODIUM 500 MG/5 ML VIAL (BRIDION) As Ordered ONE (08:54)
[2022-10-12] MEDS ORDERED: MACR100C43 PO (09:35)
[2022-10-12] MEDS ORDERED: ONDANSETRON 4MG 2ML VIAL IV PRN (09:40)
[2022-10-12] MEDS ORDERED: HYDROMORPHONE HCL 0.5 MG/ 0.5 ML SYRINGE IV PRN (09:40)
[2022-10-12] MEDS ORDERED: fentaNYL 100 MCG/2 ML INJECTION IV PRN (09:40)
[2022-10-12] MEDS ORDERED: oxyCODONE 5MG TAB PO PRN (09:40)
[2022-10-12 10:49] VITALS: BP 127/74; TEMP 98; O2SAT 95
== END 2022-10-12 11:09 | disposition home or self-care (01) ==
LOC: M SDC 07:18
PROVIDERS: ATTEND Urology
DX: C67.9 Malignant neoplasm of bladder, unspecified (principal); K21.9 Gastro-esophageal reflux disease without esophagitis; Z87.891 Personal history of nicotine dependence; Z79.899 Other long term (current) drug therapy
CPT/HCPCS: 52234; 88305; J0131; J0690; J1100; J2250; J2405; J3010

== ENCOUNTER → 2023-01-22 | Outpatient (REF) | payer OTHER ==
[~2023-01-22] MED LIST changes: -CEFD300C41 PO; +CEFD300C42 PO; +MACR100C43 PO; -OXYB5TAB10 PO; +OXYB5TAB11 PO; -ceFAZolin SOD 2 GM in IV 1 EA IV ONE
[2023-01-22 18:53] LABS: APPEARANCE, URINE HAZY (CLEAR); BACTERIA, URINE AUTO NEGATIVE (NEGATIVE); BILIRUBIN, URINE AUTO NEGATIVE (NEGATIVE); BLOOD, URINE BLOOD NEGATIVE (NEGATIVE); COLOR, URINE YELLOW (YELLOW); GLUCOSE, URINE (UA) AUTO NEGATIVE (NEGATIVE); KETONE, URINE AUTO NEGATIVE (NEGATIVE); LEUKOCYTE ESTERASE, URINE AUTO NEGATIVE (NEGATIVE); NITRITE, URINE AUTO NEGATIVE (NEGATIVE); PROTEIN, URINE AUTO NEGATIVE (NEGATIVE); RBC, URINE AUTO 2 /HPF (0-3); SPECIFIC GRAVITY URINE AUTO 1.021 (1.002-1.035); SQUAMOUS EPITHELIAL CELL UR AU 0 /HPF (0-6); UROBILINOGEN, URINE AUTO 0.2 mg/dL (0.0-2.0); WBC, URINE AUTO 2 /HPF (0-3)
== END ==
LOC: M SMT 17:50
PROVIDERS: ATTEND Urology
DX: R82.89 Other abnormal findings on cytological and histological examination of urine (principal); Z85.51 Personal history of malignant neoplasm of bladder

== ENCOUNTER → 2023-05-14 | Outpatient (REF) | payer OTHER ==
[~2023-05-14] MED LIST changes: +CEFD1CAP9 PO; -CEFD300C42 PO
[2023-05-14 19:05] LABS: APPEARANCE, URINE HAZY (CLEAR); BACTERIA, URINE AUTO NEGATIVE (NEGATIVE); BILIRUBIN, URINE AUTO NEGATIVE (NEGATIVE); BLOOD, URINE BLOOD NEGATIVE (NEGATIVE); COLOR, URINE YELLOW (YELLOW); GLUCOSE, URINE (UA) AUTO NEGATIVE (NEGATIVE); KETONE, URINE AUTO NEGATIVE (NEGATIVE); LEUKOCYTE ESTERASE, URINE AUTO NEGATIVE (NEGATIVE); MUCUS, URINE SMALL (NEGATIVE); NITRITE, URINE AUTO NEGATIVE (NEGATIVE); PROTEIN, URINE AUTO NEGATIVE (NEGATIVE); RBC, URINE AUTO 1 /HPF (0-3); SPECIFIC GRAVITY URINE AUTO 1.017 (1.002-1.035); SQUAMOUS EPITHELIAL CELL UR AU 0 /HPF (0-6); UROBILINOGEN, URINE AUTO 0.2 mg/dL (0.0-2.0); WBC, URINE AUTO 1 /HPF (0-3)
== END ==
LOC: M SMT 17:17
PROVIDERS: ATTEND Urology
DX: Z85.51 Personal history of malignant neoplasm of bladder (principal)

== ENCOUNTER → 2023-07-05 | Outpatient (CLI) | payer OTHER ==
[~2023-07-05] MED LIST changes: -OXYB5TAB11 PO; +OXYB5TAB14 PO
[2023-07-05 08:25] LABS: BASO % 0.6 % (0.0-1.0); EOS # 0.3 10^3/uL (0.0-0.5); EOS % 4.4 % (0.0-3.0); HEMATOCRIT 42.8 % (42.0-52.0); HEMOGLOBIN 15.5 g/dl (13.5-17.5); LYMPH # 2.9 10^3/uL (1.5-5.0); LYMPH % 41.9 % (24.0-44.0); MEAN CORPUSCULAR HEMOGLOBIN 32.9 pg (27.0-33.0); MEAN CORPUSCULAR HGB CONC 36.2 g/dl (32.0-36.5); MEAN CORPUSCULAR VOLUME 90.9 fl (80.0-96.0); MONO # 0.7 10^3/uL (0.0-0.8); MONO % 9.6 % (2.0-8.0); NEUTROPHILS % 43.1 % (36.0-66.0); PLATELET COUNT, AUTOMATED 240 10^3/uL (150-450); RED BLOOD COUNT 4.71 10^6/uL (4.30-6.10); WHITE BLOOD COUNT 6.9 10^3/uL (4.0-10.0)
[2023-07-05 08:41] LABS: HEMOGLOBIN A1c 4.4 % (4.0-6.0)
[2023-07-05 08:48] LABS: PSA SCREENING 1.81 NG/ML (< 4.00)
[2023-07-05 08:51] LABS: ALBUMIN 4.3 G/DL (3.2-5.2); ALKALINE PHOSPHATASE 101 U/L (46-116); ALT/SGPT 32 U/L (7.0-40); AST/SGOT 14 U/L (<34); BILIRUBIN,TOTAL 1.1 MG/DL (0.3-1.2); BLOOD UREA NITROGEN 18 MG/DL (9-23); CALCIUM LEVEL 9.1 MG/DL (8.3-10.6); CARBON DIOXIDE LEVEL 30 MMOL/L (20-31); CHLORIDE LEVEL 105 MMOL/L (98-107); CHOLESTEROL LEVEL 170 MG/DL (<200); CHOLESTEROL RISK RATIO 5.98 (<5); CREATININE FOR GFR 0.86 MG/DL (0.70-1.30); GLOMERULAR FILTRATION RATE > 60.0 (>49); GLUCOSE, FASTING 94 MG/DL (74-106); HDL CHOLESTEROL 28.4 MG/DL (>40); NON-HDL-C 141.6 MG/DL; POTASSIUM SERUM 4.6 MMOL/L (3.5-5.1); SODIUM LEVEL 140 MMOL/L (136-145); TOTAL PROTEIN 7.7 G/DL (5.7-8.2); TRIGLYCERIDES LEVEL 469 MG/DL (<150)
[2023-07-05 08:52] LABS: TOTAL 25(OH) VITAMIN D 52.5 NG/ML (20.0-100.0)
== END ==
LOC: M LAB 07:18
PROVIDERS: ATTEND Physician Assistant
DX: Z00.00 Encounter for general adult medical examination without abnormal findings (principal); Z13.1 Encounter for screening for diabetes mellitus; Z12.5 Encounter for screening for malignant neoplasm of prostate; E55.9 Vitamin D deficiency, unspecified; E78.2 Mixed hyperlipidemia

== ENCOUNTER → 2023-08-14 | Outpatient (REF) | payer OTHER ==
[~2023-08-14] MED LIST changes: +DOXY-440 PO; -DOXY-444 PO
[2023-08-14 15:46] LABS: APPEARANCE, URINE HAZY (CLEAR); BACTERIA, URINE AUTO NEGATIVE (NEGATIVE); BILIRUBIN, URINE AUTO NEGATIVE (NEGATIVE); BLOOD, URINE BLOOD NEGATIVE (NEGATIVE); COLOR, URINE YELLOW (YELLOW); GLUCOSE, URINE (UA) AUTO NEGATIVE (NEGATIVE); KETONE, URINE AUTO NEGATIVE (NEGATIVE); LEUKOCYTE ESTERASE, URINE AUTO NEGATIVE (NEGATIVE); MUCUS, URINE SMALL (NEGATIVE); NITRITE, URINE AUTO NEGATIVE (NEGATIVE); PROTEIN, URINE AUTO NEGATIVE (NEGATIVE); RBC, URINE AUTO 1 /HPF (0-3); SQUAMOUS EPITHELIAL CELL UR AU 0 /HPF (0-6); UROBILINOGEN, URINE AUTO 0.2 mg/dL (0.0-2.0); WBC, URINE AUTO 3 /HPF (0-3)
== END ==
LOC: M SMT 15:12
PROVIDERS: ATTEND Urology
DX: Z85.51 Personal history of malignant neoplasm of bladder (principal); R82.998 Other abnormal findings in urine

== ENCOUNTER → 2023-09-23 | Outpatient (CLI) | payer OTHER | LOC: M RAD 11:09 | PROVIDERS: ATTEND Physician Assistant | DX: Z12.2 Encounter for screening for malignant neoplasm of respiratory organs (principal); F17.210 Nicotine dependence, cigarettes, uncomplicated ==

== ENCOUNTER → 2023-11-13 | Outpatient (REF) | payer OTHER ==
[2023-11-13 18:45] LABS: APPEARANCE, URINE HAZY (CLEAR); BACTERIA, URINE AUTO NEGATIVE (NEGATIVE); BILIRUBIN, URINE AUTO NEGATIVE (NEGATIVE); BLOOD, URINE BLOOD NEGATIVE (NEGATIVE); COLOR, URINE YELLOW (YELLOW); GLUCOSE, URINE (UA) AUTO NEGATIVE (NEGATIVE); KETONE, URINE AUTO NEGATIVE (NEGATIVE); LEUKOCYTE ESTERASE, URINE AUTO NEGATIVE (NEGATIVE); MUCUS, URINE SMALL (NEGATIVE); NITRITE, URINE AUTO NEGATIVE (NEGATIVE); PROTEIN, URINE AUTO 1+ mg/dL (NEGATIVE); RBC, URINE AUTO 0 /HPF (0-3); SPECIFIC GRAVITY URINE AUTO 1.025 (1.002-1.035); SQUAMOUS EPITHELIAL CELL UR AU 0 /HPF (0-6); UROBILINOGEN, URINE AUTO 0.2 mg/dL (0.0-2.0); WBC, URINE AUTO 0 /HPF (0-3)
== END ==
LOC: M SMT 16:59
PROVIDERS: ATTEND Urology
DX: Z85.51 Personal history of malignant neoplasm of bladder (principal)

== ENCOUNTER → 2023-12-27 | Outpatient (CLI) | payer OTHER ==
[~2023-12-27] MED LIST changes: +FAMO40TA3 PO; +OMEP40CA5 PO; +VASC1CAP2 PO
[2023-12-27 08:43] LABS: APPEARANCE, URINE CLEAR (CLEAR); BACTERIA, URINE AUTO NEGATIVE (NEGATIVE); BILIRUBIN, URINE AUTO NEGATIVE (NEGATIVE); BLOOD, URINE BLOOD 3+ (NEGATIVE); COLOR, URINE YELLOW (YELLOW); GLUCOSE, URINE (UA) AUTO NEGATIVE (NEGATIVE); KETONE, URINE AUTO NEGATIVE (NEGATIVE); LEUKOCYTE ESTERASE, URINE AUTO NEGATIVE (NEGATIVE); MUCUS, URINE SMALL (NEGATIVE); NITRITE, URINE AUTO NEGATIVE (NEGATIVE); PROTEIN, URINE AUTO 1+ mg/dL (NEGATIVE); RBC, URINE AUTO 20 /HPF (0-3); SPECIFIC GRAVITY URINE AUTO 1.019 (1.002-1.035); SQUAMOUS EPITHELIAL CELL UR AU 0 /HPF (0-6); UROBILINOGEN, URINE AUTO 0.2 mg/dL (0.0-2.0); WBC, URINE AUTO 4 /HPF (0-3)
[2023-12-27 09:00] LABS: HEMATOCRIT 37.5 % (42.0-52.0); HEMOGLOBIN 13.8 g/dl (13.5-17.5); MEAN CORPUSCULAR HEMOGLOBIN 33.7 pg (27.0-33.0); MEAN CORPUSCULAR VOLUME 91.7 fl (80.0-96.0); PLATELET COUNT, AUTOMATED 247 10^3/uL (150-450); RED BLOOD COUNT 4.09 10^6/uL (4.30-6.10); WHITE BLOOD COUNT 6.3 10^3/uL (4.0-10.0)
[2023-12-27 09:05] LABS: ALBUMIN 4.2 G/DL (3.2-5.2); CALCIUM LEVEL 9.3 MG/DL (8.3-10.6); CREATININE FOR GFR 1.46 MG/DL (0.70-1.30); GLOMERULAR FILTRATION RATE 51.9 (>49); POTASSIUM SERUM 4.6 MMOL/L (3.5-5.1); TOTAL PROTEIN 7.6 G/DL (5.7-8.2)
[2023-12-27 09:28] LABS: MEAN CORPUSCULAR HGB CONC 36.8 g/dl (32.0-36.5)
== END ==
LOC: M LAB 07:37
PROVIDERS: ATTEND Urology
DX: Z85.51 Personal history of malignant neoplasm of bladder (principal)

== ENCOUNTER → 2023-12-31 | Outpatient (CLI) | payer OTHER | LOC: M PLAIMG 11:02 | PROVIDERS: ATTEND Urology | DX: C67.9 Malignant neoplasm of bladder, unspecified (principal); K57.90 Diverticulosis of intestine, part unspecified, without perforation or abscess without bleeding; K40.20 Bilateral inguinal hernia, without obstruction or gangrene, not specified as recurrent; N13.30 Unspecified hydronephrosis ==

== ENCOUNTER 2024-01-06 07:43 | Day surgery (SDC) | payer OTHER ==
[~2024-01-06] VITALS: Ht 167.6 cm; Wt 71.8 kg
[2024-01-06] MEDS ORDERED: LR 1,000 ML IV SCH ×2 (08:00→10:20)
[2024-01-06] MEDS ORDERED: ACETAMINOPHEN 1000MG 100ML IV BAG As Ordered ONE (09:05)
[2024-01-06] MEDS ORDERED: LIDOCAINE 2% 100MG/5ML SDV (FOR ANES.) As Ordered ONE (09:05)
[2024-01-06] MEDS ORDERED: ROCURONIUM BROMIDE 50MG/5ML VIAL As Ordered ONE (09:05)
[2024-01-06] MEDS ORDERED: propofoL 200 MG/20 ML VIAL As Ordered ONE (09:05)
[2024-01-06] MEDS ORDERED: ONDANSETRON 4MG 2ML VIAL As Ordered ONE (09:05)
[2024-01-06] MEDS ORDERED: SUGAMMADEX SODIUM 500 MG/5 ML VIAL (BRIDION) As Ordered ONE (09:05)
[2024-01-06] MEDS ORDERED: fentaNYL 100 MCG/2 ML INJECTION As Ordered ONE (09:06)
[2024-01-06] MEDS ORDERED: MIDAZOLAM INJ 2MG/2ML VIAL As Ordered ONE (09:06)
[2024-01-06] MEDS: ceFAZolin SOD 2 GM in IV 1 EA IV ONE (09:33)
[2024-01-06] MEDS: ISOVUE-300 61% 100ML VIAL As Ordered ONE (10:06)
[2024-01-06] MEDS: MITOMYCIN 40MG IN 40ML SWFI SYRINGE INTRAVESIC ONE (10:13)
[2024-01-06] MEDS ORDERED: fentaNYL 100 MCG/2 ML INJECTION IV PRN (10:20)
[2024-01-06] MEDS ORDERED: ONDANSETRON 4MG 2ML VIAL IV PRN (10:20)
[2024-01-06] MEDS ORDERED: oxyCODONE 5MG TAB PO PRN (10:20)
[2024-01-06] MEDS ORDERED: HYDROMORPHONE HCL 0.5 MG/ 0.5 ML SYRINGE IV PRN (10:20)
[2024-01-06 11:25] VITALS: BP 132/77; TEMP 98.4; O2SAT 97
== END 2024-01-06 11:30 | disposition home or self-care (01) ==
LOC: M SDC 07:43
PROVIDERS: ATTEND Urology
DX: C67.9 Malignant neoplasm of bladder, unspecified (principal); Z87.891 Personal history of nicotine dependence; Z79.899 Other long term (current) drug therapy
CPT/HCPCS: 51720; 52235; 52332; 74420; 88305; J0131; J0690; J1100; J2250; J2405; J3010; J9280; Q9967

== ENCOUNTER → 2024-01-14 | Outpatient (CLI) | payer OTHER ==
[2024-01-14 09:24] LABS: BLOOD UREA NITROGEN 20 MG/DL (9-23); CALCIUM LEVEL 9.7 MG/DL (8.3-10.6); CARBON DIOXIDE LEVEL 28 MMOL/L (20-31); CHLORIDE LEVEL 105 MMOL/L (98-107); CREATININE FOR GFR 1.11 MG/DL (0.70-1.30); GLOMERULAR FILTRATION RATE > 60.0 (>49); GLUCOSE, FASTING 88 MG/DL (74-106); POTASSIUM SERUM 4.6 MMOL/L (3.5-5.1); SODIUM LEVEL 139 MMOL/L (136-145)
== END ==
LOC: M LAB 08:25
PROVIDERS: ATTEND Urology
DX: C67.9 Malignant neoplasm of bladder, unspecified (principal)

== ENCOUNTER → 2024-01-22 | Outpatient (CLI) | payer OTHER ==
[~2024-01-22] MED LIST changes: +GASTROGRAFIN SOLUTION 30ML As Ordered ONE; +ISOVUE-370 76% 100ML VIAL As Ordered ONE
== END ==
LOC: M RAD 07:58
PROVIDERS: ATTEND Urology
DX: C67.9 Malignant neoplasm of bladder, unspecified (principal); Z96.0 Presence of urogenital implants; N28.1 Cyst of kidney, acquired; J47.9 Bronchiectasis, uncomplicated; J98.11 Atelectasis; N62 Hypertrophy of breast
CPT/HCPCS: 71260; 74177; Q9963; Q9967

== ENCOUNTER → 2024-03-02 | Outpatient (CLI) | payer OTHER ==
[~2024-03-02] MED LIST changes: -GASTROGRAFIN SOLUTION 30ML As Ordered ONE; -ISOVUE-370 76% 100ML VIAL As Ordered ONE
[2024-03-02 08:32] LABS: HEMATOCRIT 37.2 % (42.0-52.0); HEMOGLOBIN 13.7 g/dl (13.5-17.5); MEAN CORPUSCULAR HEMOGLOBIN 33.5 pg (27.0-33.0); MEAN CORPUSCULAR HGB CONC 36.8 g/dl (32.0-36.5); PLATELET COUNT, AUTOMATED 307 10^3/uL (150-450); RED BLOOD COUNT 4.09 10^6/uL (4.30-6.10); WHITE BLOOD COUNT 7.2 10^3/uL (4.0-10.0)
[2024-03-02 09:04] LABS: ALBUMIN 4.1 G/DL (3.2-5.2); ALKALINE PHOSPHATASE 106 U/L (40-129); ALT/SGPT 20 U/L (7.0-40); AST/SGOT < 8 U/L (<34); BILIRUBIN,TOTAL 1.7 MG/DL (0.3-1.2); BLOOD UREA NITROGEN 19 MG/DL (9-23); CALCIUM LEVEL 9.6 MG/DL (8.3-10.6); CARBON DIOXIDE LEVEL 28 MMOL/L (20-31); CHLORIDE LEVEL 105 MMOL/L (98-107); CREATININE FOR GFR 1.13 MG/DL (0.70-1.30); GLOMERULAR FILTRATION RATE > 60.0 (>49); GLUCOSE, FASTING 100 MG/DL (74-106); POTASSIUM SERUM 4.4 MMOL/L (3.5-5.1); SODIUM LEVEL 140 MMOL/L (136-145); TOTAL PROTEIN 7.9 G/DL (5.7-8.2)
== END ==
LOC: M LAB 07:58
PROVIDERS: ATTEND Urology
DX: C67.9 Malignant neoplasm of bladder, unspecified (principal)

== ENCOUNTER → 2024-03-09 | Outpatient (CLI) | payer OTHER | LOC: M LAB 07:27 | PROVIDERS: ATTEND Urology | DX: C67.9 Malignant neoplasm of bladder, unspecified (principal) ==

== ENCOUNTER 2024-03-17 06:00 | Day surgery (SDC) | payer OTHER ==
[2024-03-17] VITALS (7 sets, daily range): BP systolic 106–123; BP diastolic 65–84; TEMP 98.6–99; O2SAT 96–98
[~2024-03-17] VITALS: Ht 167.6 cm; Wt 68.4 kg
[~2024-03-17 06:00] MED LIST changes: +ICOS1CAP PO
[2024-03-17] MEDS ORDERED: LR 1,000 ML IV SCH (06:35)
[2024-03-17] MEDS ORDERED: LIDOCAINE 2% 100MG/5ML SDV (FOR ANES.) As Ordered ONE (07:17)
[2024-03-17] MEDS ORDERED: MIDAZOLAM INJ 2MG/2ML VIAL As Ordered ONE (07:17)
[2024-03-17] MEDS ORDERED: fentaNYL 100 MCG/2 ML INJECTION As Ordered ONE (07:17)
[2024-03-17] MEDS ORDERED: propofoL 200 MG/20 ML VIAL As Ordered ONE (07:17)
[2024-03-17] MEDS ORDERED: ROCURONIUM BROMIDE 50MG/5ML VIAL As Ordered ONE (07:17)
[2024-03-17] MEDS ORDERED: ONDANSETRON 4MG 2ML VIAL As Ordered ONE (07:17)
[2024-03-17] MEDS: ceFAZolin SOD 2 GM in IV 1 EA IV ONE (07:30)
[2024-03-17] MEDS ORDERED: ONDANSETRON 4MG 2ML VIAL IV PRN ×2 (07:35→12:45)
[2024-03-17] MEDS ORDERED: ACETAMINOPHEN 325 MG TAB PO PRN (07:35)
[2024-03-17] MEDS ORDERED: PERCOCET 5MG/325MG TAB PO PRN (07:35)
[2024-03-17] MEDS ORDERED: HYDROmorphone HCL 2MG/ML 1ML VIAL As Ordered ONE (08:19)
[2024-03-17] MEDS ORDERED: ACETAMINOPHEN 1000MG/100ML IV BAG As Ordered ONE (08:39)
[2024-03-17] MEDS ORDERED: dexmedeTOMIDine (4MCG/ML)200MCG/50ML BTL (PRECEDEX) As Ordered ONE (08:52)
[2024-03-17] MEDS ORDERED: LABETALOL 100MG/20ML VIAL As Ordered ONE (10:18)
[2024-03-17] MEDS: BOTOX THERAPEUTIC 100 UNIT VIAL As Ordered ONE (10:42)
[2024-03-17] MEDS: LIDOCAINE 1% SDV 30ML VIAL As Ordered ONE (10:44)
[2024-03-17] MEDS: ceFAZolin 1GM VIAL As Ordered ONE (11:30)
[2024-03-17] MEDS: ceFAZolin SOD 1 GM in DEXTROSE 5% (D5W) ADV/MINI-BAG 50 ML IV SCH (11:30)
[2024-03-17] MEDS ORDERED: KETOROLAC 60MG 2ML VIAL As Ordered ONE (11:36)
[2024-03-17] MEDS ORDERED: SUGAMMADEX SODIUM 500 MG/5 ML VIAL (BRIDION) As Ordered ONE (11:36)
[2024-03-17] MEDS ORDERED: PHENYLephrine 500MCG 5ML (100MCG/ML) SYRINGE As Ordered ONE (12:08)
[2024-03-17] MEDS ORDERED: oxyCODONE 5MG TAB PO PRN (12:45)
[2024-03-17] MEDS ORDERED: fentaNYL 100 MCG/2 ML INJECTION IV PRN (12:45)
[2024-03-17] MEDS ORDERED: MORPHINE 2 MG/ML 1ML VIAL IV PRN (12:45)
[2024-03-17 13:18] LABS: HEMATOCRIT 38.3 % (42.0-52.0); HEMOGLOBIN 14.1 g/dl (13.5-17.5); MEAN CORPUSCULAR HEMOGLOBIN 34.1 pg (27.0-33.0); MEAN CORPUSCULAR HGB CONC 36.8 g/dl (32.0-36.5); MEAN CORPUSCULAR VOLUME 92.5 fl (80.0-96.0); PLATELET COUNT, AUTOMATED 310 10^3/uL (150-450); RED BLOOD COUNT 4.14 10^6/uL (4.30-6.10); WHITE BLOOD COUNT 15.4 10^3/uL (4.0-10.0)
[2024-03-17 14:03] LABS: BLOOD UREA NITROGEN 13 MG/DL (9-23); CALCIUM LEVEL 8.7 MG/DL (8.3-10.6); CARBON DIOXIDE LEVEL 22 MMOL/L (20-31); CHLORIDE LEVEL 106 MMOL/L (98-107); CREATININE FOR GFR 1.23 MG/DL (0.70-1.30); GLOMERULAR FILTRATION RATE > 60.0 (>49); GLUCOSE, FASTING 168 MG/DL (74-106); POTASSIUM SERUM 5.4 MMOL/L (3.5-5.1); SODIUM LEVEL 140 MMOL/L (136-145)
[2024-03-17] MEDS: DOCUSATE SODIUM 100MG CAPSULE PO SCH (15:01)
[2024-03-17] MEDS: NS (Normal Saline) 0.9% 1,000 ML IV SCH (15:05)
[2024-03-17] MEDS: PERCOCET 5MG/325MG TAB PO PRN (17:06)
[2024-03-18 00:12] VITALS: BP 129/71; TEMP 98.8; O2SAT 98
[2024-03-18 03:00] VITALS: BP 115/62; TEMP 98.8; O2SAT 97
[2024-03-18 06:24] LABS: HEMATOCRIT 33.2 % (42.0-52.0); MEAN CORPUSCULAR HGB CONC 36.4 g/dl (32.0-36.5); MEAN CORPUSCULAR VOLUME 93.3 fl (80.0-96.0); PLATELET COUNT, AUTOMATED 245 10^3/uL (150-450); RED BLOOD COUNT 3.56 10^6/uL (4.30-6.10); WHITE BLOOD COUNT 10.1 10^3/uL (4.0-10.0)
[2024-03-18 06:28] LABS: HEMOGLOBIN 12.1 g/dl (13.5-17.5)
[2024-03-18 06:41] LABS: CALCIUM LEVEL 8.6 MG/DL (8.3-10.6); CREATININE FOR GFR 1.29 MG/DL (0.70-1.30); GLOMERULAR FILTRATION RATE 59.7 (>49); POTASSIUM SERUM 4.4 MMOL/L (3.5-5.1)
[2024-03-18] MEDS ORDERED: COLA100C5 PO (07:50)
[2024-03-18] MEDS ORDERED: CIPR-249 PO (07:50)
[2024-03-18] MEDS ORDERED: PERCOCET PO (07:50)
[2024-03-18 08:00] VITALS: BP 134/71; TEMP 98.6; O2SAT 99
[2024-03-18 11:50] VITALS: BP 125/82; TEMP 99; O2SAT 98
== END 2024-03-18 12:46 | disposition home or self-care (01) ==
LOC: M SDC 06:00 → M MSPAV 14:33 → M SDC 03-18 12:46
PROVIDERS: ATTEND Urology
DX: C66.2 Malignant neoplasm of left ureter (principal); K74.00 Hepatic fibrosis, unspecified; Z87.891 Personal history of nicotine dependence; Z79.899 Other long term (current) drug therapy
CPT/HCPCS: 36415; 50548; 80048; 85027; 86850; 86900; 86901; 88307; A4215; C1769; J0131; J0665; J0690; J1100; J1171; J1885; J1920; J2250; J2371; J2405; J3010; S2900

== ENCOUNTER → 2024-03-24 | Outpatient (CLI) | payer OTHER ==
[~2024-03-24] MED LIST changes: +CIPR-249 PO; +COLA100C5 PO; +PERCOCET PO
[2024-03-24 08:40] LABS: HEMATOCRIT 29.7 % (42.0-52.0); HEMOGLOBIN 10.9 g/dl (13.5-17.5); MEAN CORPUSCULAR HEMOGLOBIN 33.5 pg (27.0-33.0); MEAN CORPUSCULAR VOLUME 91.4 fl (80.0-96.0); PLATELET COUNT, AUTOMATED 344 10^3/uL (150-450); RED BLOOD COUNT 3.25 10^6/uL (4.30-6.10); WHITE BLOOD COUNT 11.2 10^3/uL (4.0-10.0)
[2024-03-24 08:43] LABS: MEAN CORPUSCULAR HGB CONC 36.7 g/dl (32.0-36.5)
[2024-03-24 09:02] LABS: BLOOD UREA NITROGEN 17 MG/DL (9-23); CALCIUM LEVEL 8.7 MG/DL (8.3-10.6); CARBON DIOXIDE LEVEL 28 MMOL/L (20-31); CHLORIDE LEVEL 102 MMOL/L (98-107); GLOMERULAR FILTRATION RATE > 60.0 (>49); GLUCOSE, FASTING 94 MG/DL (74-106); POTASSIUM SERUM 4.5 MMOL/L (3.5-5.1); SODIUM LEVEL 135 MMOL/L (136-145)
== END ==
LOC: M LAB 07:30
PROVIDERS: ATTEND Urology
DX: C68.9 Malignant neoplasm of urinary organ, unspecified (principal)

== ENCOUNTER → 2024-05-18 | Outpatient (CLI) | payer OTHER ==
[2024-05-18 11:31] LABS: HEMATOCRIT 41.8 % (42.0-52.0); HEMOGLOBIN 14.9 g/dl (13.5-17.5); MEAN CORPUSCULAR HEMOGLOBIN 32.2 pg (27.0-33.0); MEAN CORPUSCULAR HGB CONC 35.6 g/dl (32.0-36.5); MEAN CORPUSCULAR VOLUME 90.3 fl (80.0-96.0); PLATELET COUNT, AUTOMATED 286 10^3/uL (150-450); RED BLOOD COUNT 4.63 10^6/uL (4.30-6.10); WHITE BLOOD COUNT 7.7 10^3/uL (4.0-10.0)
[2024-05-18 11:32] LABS: APPEARANCE, URINE CLEAR (CLEAR); BACTERIA, URINE AUTO 2+ (NEGATIVE); BILIRUBIN, URINE AUTO NEGATIVE (NEGATIVE); BLOOD, URINE BLOOD NEGATIVE (NEGATIVE); COLOR, URINE YELLOW (YELLOW); GLUCOSE, URINE (UA) AUTO NEGATIVE (NEGATIVE); KETONE, URINE AUTO NEGATIVE (NEGATIVE); LEUKOCYTE ESTERASE, URINE AUTO NEGATIVE (NEGATIVE); NITRITE, URINE AUTO NEGATIVE (NEGATIVE); PROTEIN, URINE AUTO NEGATIVE (NEGATIVE); RBC, URINE AUTO 1 /HPF (0-3); SPECIFIC GRAVITY URINE AUTO 1.008 (1.002-1.035); SQUAMOUS EPITHELIAL CELL UR AU 0 /HPF (0-6); UROBILINOGEN, URINE AUTO 0.2 mg/dL (0.0-2.0); WBC, URINE AUTO 1 /HPF (0-3)
[2024-05-18 11:57] LABS: ALBUMIN 4.2 G/DL (3.2-5.2); ALKALINE PHOSPHATASE 110 U/L (40-129); ALT/SGPT 25 U/L (7.0-40); AST/SGOT 19 U/L (<34); BILIRUBIN,TOTAL 0.7 MG/DL (0.3-1.2); BLOOD UREA NITROGEN 30 MG/DL (9-23); CALCIUM LEVEL 9.5 MG/DL (8.3-10.6); CARBON DIOXIDE LEVEL 29 MMOL/L (20-31); CHLORIDE LEVEL 100 MMOL/L (98-107); CREATININE FOR GFR 1.25 MG/DL (0.70-1.30); GLOMERULAR FILTRATION RATE > 60.0 (>49); GLUCOSE, FASTING 84 MG/DL (74-106); POTASSIUM SERUM 4.3 MMOL/L (3.5-5.1); SODIUM LEVEL 138 MMOL/L (136-145); TOTAL PROTEIN 8.1 G/DL (5.7-8.2)
== END ==
LOC: M LAB 10:43
PROVIDERS: ATTEND Urology
DX: C67.9 Malignant neoplasm of bladder, unspecified (principal)

== ENCOUNTER → 2024-05-25 | Outpatient (CLI) | payer OTHER ==
[2024-05-25 11:11] LABS: APPEARANCE, URINE HAZY (CLEAR); BACTERIA, URINE AUTO NEGATIVE (NEGATIVE); BILIRUBIN, URINE AUTO NEGATIVE (NEGATIVE); BLOOD, URINE BLOOD NEGATIVE (NEGATIVE); COLOR, URINE YELLOW (YELLOW); GLUCOSE, URINE (UA) AUTO NEGATIVE (NEGATIVE); KETONE, URINE AUTO NEGATIVE (NEGATIVE); LEUKOCYTE ESTERASE, URINE AUTO NEGATIVE (NEGATIVE); NITRITE, URINE AUTO NEGATIVE (NEGATIVE); PROTEIN, URINE AUTO NEGATIVE (NEGATIVE); RBC, URINE AUTO 0 /HPF (0-3); SPECIFIC GRAVITY URINE AUTO 1.005 (1.002-1.035); SQUAMOUS EPITHELIAL CELL UR AU 0 /HPF (0-6); UROBILINOGEN, URINE AUTO 0.2 mg/dL (0.0-2.0); WBC, URINE AUTO 2 /HPF (0-3)
== END ==
LOC: M LAB 09:41
PROVIDERS: ATTEND Urology
DX: C67.9 Malignant neoplasm of bladder, unspecified (principal)

== ENCOUNTER → 2024-06-01 | Outpatient (CLI) | payer OTHER ==
[2024-06-01 12:20] LABS: APPEARANCE, URINE CLEAR (CLEAR); BACTERIA, URINE AUTO NEGATIVE (NEGATIVE); BILIRUBIN, URINE AUTO NEGATIVE (NEGATIVE); BLOOD, URINE BLOOD NEGATIVE (NEGATIVE); COLOR, URINE YELLOW (YELLOW); GLUCOSE, URINE (UA) AUTO NEGATIVE (NEGATIVE); KETONE, URINE AUTO NEGATIVE (NEGATIVE); LEUKOCYTE ESTERASE, URINE AUTO NEGATIVE (NEGATIVE); MUCUS, URINE SMALL (NEGATIVE); NITRITE, URINE AUTO NEGATIVE (NEGATIVE); PROTEIN, URINE AUTO NEGATIVE (NEGATIVE); RBC, URINE AUTO 1 /HPF (0-3); SPECIFIC GRAVITY URINE AUTO 1.009 (1.002-1.035); SQUAMOUS EPITHELIAL CELL UR AU 0 /HPF (0-6); UROBILINOGEN, URINE AUTO 0.2 mg/dL (0.0-2.0); WBC, URINE AUTO 5 /HPF (0-3)
== END ==
LOC: M LAB 09:38
PROVIDERS: ATTEND Nurse Practitioner Family
DX: C67.9 Malignant neoplasm of bladder, unspecified (principal)

== ENCOUNTER → 2024-06-15 | Outpatient (REF) | payer OTHER ==
[2024-06-15 13:10] LABS: APPEARANCE, URINE HAZY (CLEAR); BACTERIA, URINE AUTO NEGATIVE (NEGATIVE); BILIRUBIN, URINE AUTO NEGATIVE (NEGATIVE); BLOOD, URINE BLOOD NEGATIVE (NEGATIVE); COLOR, URINE YELLOW (YELLOW); GLUCOSE, URINE (UA) AUTO NEGATIVE (NEGATIVE); KETONE, URINE AUTO NEGATIVE (NEGATIVE); LEUKOCYTE ESTERASE, URINE AUTO NEGATIVE (NEGATIVE); MUCUS, URINE SMALL (NEGATIVE); NITRITE, URINE AUTO NEGATIVE (NEGATIVE); PROTEIN, URINE AUTO NEGATIVE (NEGATIVE); RBC, URINE AUTO 1 /HPF (0-3); SPECIFIC GRAVITY URINE AUTO 1.016 (1.002-1.035); SQUAMOUS EPITHELIAL CELL UR AU 0 /HPF (0-6); UROBILINOGEN, URINE AUTO 0.2 mg/dL (0.0-2.0); WBC, URINE AUTO 1 /HPF (0-3)
== END ==
LOC: M SMT 11:14
PROVIDERS: ATTEND Urology
DX: C67.9 Malignant neoplasm of bladder, unspecified (principal)

== ENCOUNTER → 2024-06-22 | Outpatient (CLI) | payer OTHER ==
[2024-06-22 10:46] LABS: APPEARANCE, URINE HAZY (CLEAR); BACTERIA, URINE AUTO NEGATIVE (NEGATIVE); BILIRUBIN, URINE AUTO NEGATIVE (NEGATIVE); BLOOD, URINE BLOOD NEGATIVE (NEGATIVE); COLOR, URINE YELLOW (YELLOW); GLUCOSE, URINE (UA) AUTO NEGATIVE (NEGATIVE); KETONE, URINE AUTO NEGATIVE (NEGATIVE); LEUKOCYTE ESTERASE, URINE AUTO NEGATIVE (NEGATIVE); NITRITE, URINE AUTO NEGATIVE (NEGATIVE); PROTEIN, URINE AUTO NEGATIVE (NEGATIVE); RBC, URINE AUTO 0 /HPF (0-3); SPECIFIC GRAVITY URINE AUTO 1.015 (1.002-1.035); SQUAMOUS EPITHELIAL CELL UR AU 0 /HPF (0-6); UROBILINOGEN, URINE AUTO 0.2 mg/dL (0.0-2.0); WBC, URINE AUTO 0 /HPF (0-3)
== END ==
LOC: M LAB 09:41
PROVIDERS: ATTEND Urology
DX: C67.9 Malignant neoplasm of bladder, unspecified (principal)

== ENCOUNTER → 2024-06-29 | Outpatient (CLI) | payer OTHER ==
[2024-06-29 08:14] LABS: APPEARANCE, URINE CLEAR (CLEAR); BACTERIA, URINE AUTO 1+ (NEGATIVE); BILIRUBIN, URINE AUTO NEGATIVE (NEGATIVE); BLOOD, URINE BLOOD NEGATIVE (NEGATIVE); COLOR, URINE YELLOW (YELLOW); GLUCOSE, URINE (UA) AUTO NEGATIVE (NEGATIVE); KETONE, URINE AUTO NEGATIVE (NEGATIVE); LEUKOCYTE ESTERASE, URINE AUTO TRACE (NEGATIVE); NITRITE, URINE AUTO NEGATIVE (NEGATIVE); PROTEIN, URINE AUTO NEGATIVE (NEGATIVE); RBC, URINE AUTO 2 /HPF (0-3); SPECIFIC GRAVITY URINE AUTO 1.013 (1.002-1.035); SQUAMOUS EPITHELIAL CELL UR AU 0 /HPF (0-6); UROBILINOGEN, URINE AUTO 0.2 mg/dL (0.0-2.0); WBC, URINE AUTO 16 /HPF (0-3)
== END ==
LOC: M LAB 07:29
PROVIDERS: ATTEND Urology
DX: C67.9 Malignant neoplasm of bladder, unspecified (principal)

== ENCOUNTER → 2024-07-20 | Outpatient (CLI) | payer OTHER ==
[2024-07-20 11:07] LABS: TOTAL 25(OH) VITAMIN D 52.4 NG/ML (20.0-100.0)
[2024-07-20 11:16] LABS: ALBUMIN 4.2 G/DL (3.2-5.2); BILIRUBIN,TOTAL 0.9 MG/DL (0.3-1.2); CALCIUM LEVEL 9.7 MG/DL (8.3-10.6); CHOLESTEROL RISK RATIO 6.05 (<5); CREATININE FOR GFR 1.51 MG/DL (0.70-1.30); GLOMERULAR FILTRATION RATE 51.3 (>49); LDL CHOLESTEROL 98.6 MG/DL (<100); POTASSIUM SERUM 5.4 MMOL/L (3.5-5.1); TOTAL PROTEIN 8.3 G/DL (5.7-8.2)
== END ==
LOC: M LAB 09:24
PROVIDERS: ATTEND Nurse Practitioner Family
DX: Z13.1 Encounter for screening for diabetes mellitus (principal)

== ENCOUNTER → 2024-07-31 | Outpatient (REF) | payer OTHER | LOC: M LAB REF 15:21 | PROVIDERS: ATTEND Urology | DX: C68.9 Malignant neoplasm of urinary organ, unspecified (principal) ==

== ENCOUNTER → 2024-11-02 | Outpatient (REF) | payer OTHER | LOC: M SMT 15:15 | PROVIDERS: ATTEND Urology | DX: C67.9 Malignant neoplasm of bladder, unspecified (principal) ==

== ENCOUNTER → 2024-12-02 | Outpatient (CLI) | payer OTHER ==
[~2024-12-02] MED LIST changes: -IBUP-1022; -IBUP-1022 PO; +IBUP600T42; +IBUP600T42 PO
[2024-12-02 12:55] LABS: ALT/SGPT 19.0 U/L (7.0-40); AST/SGOT 13.0 U/L (<34); CALCIUM LEVEL 9.5 MG/DL (8.3-10.6); CARBON DIOXIDE LEVEL 29.0 MMOL/L (20-31); CHLORIDE LEVEL 105.0 MMOL/L (98-107); CHOLESTEROL LEVEL 183.0 MG/DL (<200); CHOLESTEROL RISK RATIO 5.09 (<5); CREATININE FOR GFR 1.42 MG/DL (0.70-1.30); GLOMERULAR FILTRATION RATE 55.2 (>49); LDL CHOLESTEROL 104.9 MG/DL (<100); NON-HDL-C 147.1 MG/DL; POTASSIUM SERUM 4.9 MMOL/L (3.5-5.1); SODIUM LEVEL 143.0 MMOL/L (136-145); TRIGLYCERIDES LEVEL 211.0 MG/DL (<150)
== END ==
LOC: M LAB 09:50
PROVIDERS: ATTEND Nurse Practitioner Family
DX: E78.2 Mixed hyperlipidemia (principal); N18.31 Chronic kidney disease, stage 3a

== ENCOUNTER → 2025-02-15 | Outpatient (REF) | payer OTHER | LOC: M SMT 13:20 | PROVIDERS: ATTEND Urology | DX: C67.9 Malignant neoplasm of bladder, unspecified (principal) ==